=== PATIENT | female | born 1990 | race Caucasian/White ===

== ENCOUNTER 2023-02-05 01:04 | Day surgery (SDC) | payer OTHER, SELFPAY ==
[2023-01-30 14:48] VITALS: BMI 20.6
--- NOTE | 2023-01-30 14:53 | PC.NURSE ---
Report to the Outpatient Waiting Room, entrance under the green pavilion located off [facility], at time 0600 on date 02/05/23. Planned Procedure Time: 0730. Time changes happen often and if your time is changed the preop area will call you the afternoon before. - You and your visitor will be asked to self-screen and do not enter if you have any COVID symptoms. - A mask is optional within the hospital at this time. Patients may have clear liquids (water, carbonated beverages, clear teas, apple juice) until 3 hours prior to surgery with a maximum of 20 ounces. - No food from midnight until time of surgery Take the following medications with a SIP of water the morning of surgery: NONE DO NOT STOP ANY OF YOUR OTHER PRESCRIPTION MEDICATIONS PRIOR TO SURGERY EXCEPT THE FOLLOWING Medications to discontinue per physician: VITAMINS Date to take last dose: 02/01/23 Please no make-up, nail finnish, hairspray, perfume, deodorant, or body powder the day of surgery. No jewelry (including any body piercings) or valuables the day of surgery, leave them at home. Please take a shower or bath the night before, or the morning of, surgery with an antibacterial soap. Wear comfortable, loose fitting clothing. - Jewelry must be removed prior to entering the operating room. Rings and piercings that are not removed may be cut off. - The hospital will not accept responsibility for valuables. - Please leave all valuables, including medications, at home the day of surgery. If you are going home after surgery, a licensed feeder driver must drive you home. - NO public transportation without another adult if you receive anesthesia. - We recommend that an adult stay with you for 24 hours following discharge. - We also recommend that you do not drive, make important decision, drink alcoholic beverages, or take any drugs that were not prescribed by your health care provider for at least 24 hours after your discharge time. Follow any additional instructions given to you from your surgeon. If you or anyone in your household have experienced Covid symptoms in the past week, please notify your surgeon or the nurse liaison at the phone number below for possible testing. Telephone instructions given to PT - DESIREE TURCIOS and asked if any additional questions and then verbalized understanding. Patient advised to call surgeon office or pre surgery nurse liaison [phone] if any additional questions.
--- NOTE | 2023-02-04 13:35 | WPDANESEPPF ---
Anes - Initial Pre Proc Eval Procedure: Operation Date: 02/05/23 07:30 Proposed Procedures p Belt Lipectomy without Muscle Repair - Mp Brennan MD Date/Time: 02/04/23 13:35 Surgeon: Mp Brennan MD Pre Op Diagnosis: skin laxity Patient Data Age: 32 Gender: F Height: 1.63 m Weight: 54.45 kg Allergies Allergy/AdvReac Type Severity Reaction Status Date / Time No Known Allergies Allergy Verified 02/05/23 06:20 Home Medications Medication Instructions Recorded Confirmed Type norethindrone 1 mg-ethinyl 1 tablet PO DAILY 10/31/20 01/30/23 History estradiol 10 mcg (24)-iron 10 mcg(2) tablet (Lo Loestrin Fe) multivitamin 1 tablet PO DAILY 01/30/23 01/30/23 History Patient hx anesthesia problems: none Family hx anesthesia problems: none Results Review: All pre-operative results and documents have been reviewed as part of the pre-operative evaluation. [facility] Surgical History Surgical History (Updated 10/31/20 @ 10:24 by Lissy Ortiz) History of Social History Social History (Updated 10/31/20 @ 10:25 by Lissy Ortiz) Smoking packs per day: 0.5 Smoking cigarettes per day: 10.0 Years smoked: 5 Smoking pack-years: 2.50 Smoking status: Former smoker Tobacco type: cigarettes Smoking end date: 11/13/15 Alcohol intake: current Alcohol use details: RARE Substance use: never Substance use type: does not use Living arrangements: with family Spiritual care concerns: No Anes - Eval Final PreProcedure Day of Procedure 02/04/23 13:35 Patient weight: normal Heart: regular rate and rhythm Lungs: clear to auscultation and normal air movement Airway: Mallampati scale class II Neurological: alert and oriented Last oral intake: >/= 8 hours ASA classification: II Emergent: no Anesthetic plan: proceed Anesthesia type and monitoring: general ETT and standard monitoring Results Review: All pre-operative results and documents have been reviewed as part of the pre-operative evaluation. Informed Consent: The patient's anesthetic plan and its attendant risks and benefits were discussed with the patient/family/POA. Questions were solicited and answers provided to the satisfaction of the patient/family/POA.
[2023-02-05] VITALS (10 sets, daily range): BP systolic 102–130; BP diastolic 61–84; PULSE 52–83; RESP 12–16; TEMP 36.8–36.9; O2SAT 98–100
[2023-02-05] MEDS: LACTATED RINGERS 1,000 ML 30 ML IV CONT ×2 (06:30→11:42)
[2023-02-05 06:34] LABS: Urine Cotinine NEGATIVE
[2023-02-05] MEDS: SCOPOLAMINE 1.5 MG PATCH TRANSDERM (06:58)
--- NOTE | 2023-02-05 07:14 | WPDHPUPDATE1 ---
History and Physical Update Update Date/Time: 02/05/23 07:14 History and Physical has been reviewed, including an updated exam of the patient. There are NO changes in the patient's condition. Risks, benefits, and alternatives have been discussed and questions answered. Patient agrees to proceed with procedure.
--- NOTE | 2023-02-05 07:15 | W.PM.PROC2 ---
Procedure Note - Detailed Date of Procedure 02/05/23 Pre-op Diagnosis skin laxity Post-op Diagnosis Same Procedure Performed Belt lipectomy (no muscle repair) Surgeon Mp Brennan MD Anesthesia General Findings Tissue removed: 1256.2 grams Description of Procedure They are here today for the above. Previously and again today the risks, benefits, alternatives were discussed in extensive detail. I wanted them to be very realistic about the risks involved as well as expectations. She declines muscle repair and understands the advantages / disadvantages of this. We discussed aftercare and what to monitor for. I was very upfront about the risks of wound breakdown leading to loss of skin, open wounds, and need for additional procedures with permanent abdominal deformity. We discussed DVT/PE risks and management. Made sure answered all of their questions to their satisfaction today and consent was obtained. They were marked in the preoperative holding area with their verification. Taken to the operating room. Anesthesia was provided by anesthesiology. A Weeks catheter was started. The patient was placed prone on the operating table. They were prepped and draped in a standard sterile fashion. A surgical time-out was taken. Posterior A thorough examination was completed. Stab incisions were made and tumescent solution infiltrated. Discontinuous undermining was completed with a 5mm basket cannula. A 10 blade was used to make the upper incision and elevated just the planned resection (no undermining). The bed was placed in slight jackknife position to simiulate abdominoplasty and resection completed. I then approximated using a 3 point suture obliterating all space with 2-0 Vicryl followed by 3-0 stratafix ,running subcuticular 4-0 Monocryl, and tissue glue. Anterior Patient was then placed supine with care taken to protect during transfer. I placed the patient in a flexed position to verify the upper and lower markings would reach. I then placed supine. A thorough abdominal examination was completed. Stab incisions were made and tumescent solution infiltrated. A 5mm liposuction basket cannula was utilized to provide discontinuous undermining. A 10 blade was used to make the upper incision. I continued dissection down to the level of fascia. Elevated centrally for securing the abdomen, minimal undermining. I then again flexed the bed to verify the upper skin flap would reach the lower markings without tension. For closure we did have to leave a vertical scar on upper flap. Once verified I placed her supine once again and a 10 blade used to make the lower incision. I elevated up to level the umbilicus and left the umbilicus intact on a well-vascularized stalk. The intervening tissue was removed. The patient was flexed and starting from superior to inferior began plication using 2-0 Vicryl to obliterate all space in a standard progressive tension fashion. At the umbilicus I marked out the location of the skin and inset this with 3-0 Monocryl and 4-0 Vicryl. I continued the remainder of the plication using 2-0 Vicryl until I reached my lower planned scar line. I trimmed any excess skin of the upper flap making sure this was a tension-free closure. I then approximated using a 3 point suture with 2-0 Vicryl followed by 3-0 stratafix ,running subcuticular 4-0 Monocryl, and tissue glue. Fluffs and an abdominal binder were placed. The patient was transferred to the bed in a flexed position. Awoken and taken to the PACU without difficulty. All instrument and sponge counts were correct at the end of the case. Estimated Blood Loss 100 Drains No Packing No Pathology None sent Complications No immediate complications Condition Stable Disposition PACU
[2023-02-05] MEDS: ceFAZolin 2 GM/D5W 50 ML 2 GM/50 ML BAG IVPB (07:33)
[2023-02-05] MEDS: TRANEXAMIC ACID 1,000MG/ISO100 1,000 MG/100 ML BAG 200 MG IVPB (07:47)
--- NOTE | 2023-02-05 09:56 | SUR.OPER ---
upper body and lower body warmer on for prone and supine positioning/warmers over thigh belt.
[2023-02-05] MEDS: LACTATED RINGERS IRRIG 1,000 ML, LIDOCAINE HCL 1% LOCAL INJ 50 ML, EPINEPHrine HCL INJ ... INFILTRATE (10:56)
[2023-02-05] MEDS: ceFAZolin SODIUM 1 GM VIAL IV PUSH (11:19)
--- NOTE | 2023-02-05 11:44 | SUR.OPER ---
patient to PACU on stretcher with positioning = to surgery position/head elevation and 3 pillow under knees lower leg. LENS ENGRAVER informed of maintaining position.
[2023-02-05] MEDS: fentaNYL CITRATE INJ (*CRX) 100 MCG/2 ML VIAL 25 MCG IV PUSH ×8 (11:53→13:32)
[2023-02-05] MEDS: oxyCODONE HCL (*CRX) 5 MG TAB IR PO (12:55)
== END 2023-02-05 14:24 | disposition home or self-care (01) ==
PROVIDERS: Visit Provider Surgery Plastic and Reconstructive Surgery
PROC: (CPT 15830; principal; 2023-02-05 07:30)
DX: Z41.1 Encounter for cosmetic surgery (principal); L57.4 Cutis laxa senilis; Z87.891 Personal history of nicotine dependence
CPT/HCPCS: 15830; 15847; 80307; A9270; J0171; J0690; J1100; J1170; J2250; J2405; J2704; J3010; J7120

== ENCOUNTER 2024-04-22 00:23 | Day surgery (SDC) | payer OTHER, SELFPAY ==
[2024-04-19 11:06] VITALS: BMI 20.8
--- NOTE | 2024-04-19 11:14 | PC.NURSE ---
Report to the Outpatient Waiting Room, entrance under the green pavilion located off [facility], at time _1000_ on date _04/22/24_. Planned Procedure Time: _1200_. Time changes happen often and if your time is changed the preop area will call you the afternoon before. - You and your visitor will be asked to self-screen and do not enter if you have any COVID symptoms. - A mask is optional within the hospital at this time. Patients may have clear liquids (water, carbonated beverages, clear teas, apple juice) until 3 hours prior to surgery with a maximum of 20 ounces. - No food from midnight until time of surgery - Infants may have breast milk until 4 hours before surgery, infant formula 6 hours prior to surgery. - Children will be allowed to drink immediately following surgery. If applicable, please bring a bottle or sippy cup to assist with drinking. Juice, water, soda, and popsicles are readily available. For infants on formula, please bring formula the day of surgery. Pacifiers are allowed. Take the following medications with a SIP of water the morning of surgery: ____BUPROPION, BCP DO NOT STOP ANY OF YOUR OTHER PRESCRIPTION MEDICATIONS PRIOR TO SURGERY ?EXCEPT THE FOLLOWING Medications to discontinue per physician MULTIVITAMIN Date to take last dose Please no make-up, nail slovak, hairspray, perfume, deodorant, or body powder the day of surgery. No jewelry (including any body piercings) or valuables the day of surgery, leave them at home. Please take a shower or bath the night before, or the morning of, surgery with an antibacterial soap. Wear comfortable, loose fitting clothing. Children are encouraged to wear pajamas. - Jewelry must be removed prior to entering the operating room. Rings and piercings that are not removed may be cut off. - The hospital will not accept responsibility for valuables. - Please leave all valuables, including medications, at home the day of surgery. If you are going home after surgery, a licensed route driver salesperson must drive you home. - NO public transportation without another adult if you receive anesthesia. - We recommend that an adult stay with you for 24 hours following discharge. - We also recommend that you do not drive, make important decision, drink alcoholic beverages, or take any drugs that were not prescribed by your health care provider for at least 24 hours after your discharge time. For Pediatric surgeries, we recommend two adults accompany the child home. Follow any additional instructions given to you from your surgeon. If you or anyone in your household have experienced Covid symptoms in the past week, please notify your surgeon or the nurse liaison at the phone number below for possible testing. Telephone instructions given to and asked if any additional questions and then verbalized understanding. Patient advised to call surgeon office or pre surgery nurse liaison [phone] if any additional questions.
[2024-04-22] VITALS (7 sets, daily range): BP systolic 100–114; BP diastolic 55–81; PULSE 53–75; RESP 14–23; TEMP 36.1–36.5; O2SAT 99–100
[2024-04-22] MEDS: LACTATED RINGERS 1,000 ML 30 ML IV CONT ×2 (10:30→12:56)
[2024-04-22] MEDS: KETOROLAC 15 MG/ML VIAL (*BKC) IV PUSH (10:30)
[2024-04-22] MEDS: ACETAMINOPHEN 500 MG TABLET 1000 MG PO (10:30)
[2024-04-22 10:43] LABS: BEDSIDEPREGUCG Negative
[2024-04-22] MEDS: BUPIVACAINE/EPINEPHRINE 0.5% 50 ML VIAL 30 ML INFILTRATE (10:44)
--- NOTE | 2024-04-22 11:23 | WPDANESEPPF ---
Anes - Initial Pre Proc Eval Procedure: Operation Date: 04/22/24 12:00 Proposed Procedures p Open Ventral Hernia Repair, Possible Mesh - Malcolm Spangler DO Date/Time: 04/22/24 11:23 Surgeon: Malcolm Spangler DO Pre Op Diagnosis: ventral hernia 1.cm Patient Data Age: 33 Gender: F Height: 1.63 m Weight: 54.4 kg Last Vital Signs Temp 36.5 C 04/22/24 10:30 Pulse 75 04/22/24 10:30 Resp 14 04/22/24 10:30 BP 110/81 04/22/24 10:30 Pulse Ox 100 04/22/24 10:30 O2 Del Method Room Air 04/22/24 10:30 Allergies Allergy/AdvReac Type Severity Reaction Status Date / Time No Known Allergies Allergy Verified 04/22/24 10:39 Home Medications Medication Instructions Recorded Confirmed Type norethindrone 1 mg-ethinyl 1 tablet PO DAILY 10/31/20 04/22/24 History estradiol 10 mcg (24)-iron 10 mcg(2) tablet (Lo Loestrin Fe) multivitamin 1 tablet PO DAILY 01/30/23 04/19/24 History bupropion HCl 300 mg 24 hr tablet, 300 mg PO QAM 03/21/24 04/19/24 History extended release (Wellbutrin XL) lamotrigine 100 mg tablet 100 mg PO HS 03/21/24 04/19/24 History (Lamictal) Laboratory Tests 04/22/24 10:41 POC Urine HCG, Qual Negative POC Ur Preg QC Yes Patient hx anesthesia problems: none Family hx anesthesia problems: none Results Review: All pre-operative results and documents have been reviewed as part of the pre-operative evaluation. [facility] Surgical History Surgical History History of abdominoplasty History of Social History Social History Smoking packs per day: 0.5 Smoking cigarettes per day: 10.0 Years smoked: 2 Smoking pack-years: 1.00 Smoking status: Former smoker Tobacco type: cigarettes Smoking end date: 11/13/15 Additional smoking assessment comments: 2016 Alcohol intake: current Alcohol use details: 1 PER MONTH Substance use: never Substance use type: does not use Do You Feel Safe in your Home?: Yes Lack of Transportation: No Lack of Food: Never True Current Housing: I Have Housing Concerned About Future Housing: No Difficulty Paying Gas/Electric Bills: No Difficulty Paying for Meds: No Currently Unemployed: No Education: Trade/Vocational Certificate Difficulty w/ Childcare or Family Care: No Living arrangements: with family Spiritual care concerns: No Anes - Eval Final PreProcedure Day of Procedure 04/22/24 11:23 Patient weight: normal Heart: regular rate and rhythm Lungs: clear to auscultation Airway: Mallampati scale class II Neurological: alert and oriented Last oral intake: >/= 8 hours Emergent: no Anesthetic plan: proceed Anesthesia type and monitoring: general ETT and standard monitoring Results Review: All pre-operative results and documents have been reviewed as part of the pre-operative evaluation. Informed Consent: The patient's anesthetic plan and its attendant risks and benefits were discussed with the patient/family/POA. Questions were solicited and answers provided to the satisfaction of the patient/family/POA.
--- NOTE | 2024-04-22 12:15 | PM.IMHP ---
H&P: HPI History of Present Illness Date/Time: 04/22/24 12:15 Chief Complaint: Ventral hernia Narrative: 33 yo woman presents for ventral hernia repair. She reports no changes since last seen in office. Review of Systems Review of Systems: All systems reviewed & are unremarkable except as noted in HPI and below Eyes: Eyes: Denies change in vision ENT: Denies hearing loss, Denies neck pain and Denies sore throat Cardiovascular: Cardiovascular: Denies chest pain and Denies dyspnea Respiratory: Respiratory: Denies cough, Denies dyspnea and Denies wheezing Genitourinary: Genitourinary: Denies hematuria and Denies dysuria Musculoskeletal: Musculoskeletal: Denies arthralgias, Denies joint swelling and Denies neck pain Allergic/Immunologic: Allergic/Immunologic: Denies wheezing PMFSH Surgical History Surgical History History of abdominoplasty History of Social History Social History Smoking packs per day: 0.5 Smoking cigarettes per day: 10.0 Years smoked: 2 Smoking pack-years: 1.00 Smoking status: Former smoker Tobacco type: cigarettes Smoking end date: 11/13/15 Additional smoking assessment comments: 2016 Alcohol intake: current Alcohol use details: 1 PER MONTH Substance use: never Substance use type: does not use Do You Feel Safe in your Home?: Yes Lack of Transportation: No Lack of Food: Never True Current Housing: I Have Housing Concerned About Future Housing: No Difficulty Paying Gas/Electric Bills: No Difficulty Paying for Meds: No Currently Unemployed: No Education: Trade/Vocational Certificate Difficulty w/ Childcare or Family Care: No Living arrangements: with family Spiritual care concerns: No Meds Home Medications and Allergies Home Medications Medication Instructions Recorded Confirmed Type norethindrone 1 mg-ethinyl 1 tablet PO DAILY 10/31/20 04/22/24 History estradiol 10 mcg (24)-iron 10 mcg(2) tablet (Lo Loestrin Fe) multivitamin 1 tablet PO DAILY 01/30/23 04/19/24 History bupropion HCl 300 mg 24 hr tablet, 300 mg PO QAM 03/21/24 04/19/24 History extended release (Wellbutrin XL) lamotrigine 100 mg tablet 100 mg PO HS 03/21/24 04/19/24 History (Lamictal) Allergies Allergy/AdvReac Type Severity Reaction Status Date / Time No Known Allergies Allergy Verified 04/22/24 10:39 Vital Signs Vital Signs - 24 hr 04/22/24 10:30 Temperature 36.5 C Pulse Rate 75 Respiratory Rate 14 Blood Pressure 110/81 Pulse Oximetry 100 Oxygen Delivery Room Air Exam Const: General: alert; No acute distress Orientation/consciousness: patient oriented x3 Limitations: no limitations HENMT: Head: normocephalic and atraumatic Ears: hearing grossly normal bilaterally Face/Nose/Sinus: Normal external nose present and Normal nares present Mouth: Yes Normal oral and palatal mucosa present and Yes moist mucous membranes Eyes: General: appearance normal, both eyes and all related structures Conjunctivae: conjunctivae normal Sclera: sclerae normal Pupils: Equal, round and reactive pupils present EOM: EOMs intact bilaterally Neck: Neck: normal visual inspection, full ROM, no lymphadenopathy, supple and no JVD Lymphatic: no lymphadenopathy noted Chest: Chest palpation & inspection: normal inspection of the chest Resp: Effort & Inspection: normal respiratory effort and able to speak in complete sentences Auscultation: clear to auscultation bilaterally Percussion: percussion normal Cardio: Jugular venous distension: no JVD Rate: regular rate Rhythm: regular rhythm Heart sounds: S1 normal heart sound present and S2 normal heart sound present Peripheral pulses: Peripheral pulses 2+ throughout GI: Inspection: normal to inspection GI Palp: No abdominal tenderness, Yes Soft to palpation, No Guarding due to pa
--- NOTE | 2024-04-22 12:20 | WPDHPUPDATE1 ---
History and Physical Update Update Date/Time: 04/22/24 12:20 History and Physical has been reviewed, including an updated exam of the patient. There are NO changes in the patient's condition. Risks, benefits, and alternatives have been discussed and questions answered. Patient agrees to proceed with procedure.
[2024-04-22] MEDS: ceFAZolin 2 GM/D5W 50 ML 2 GM/50 ML BAG IVPB (12:22)
[2024-04-22 12:41] LABS: BEDSIDEPREGUCG Negative
--- NOTE | 2024-04-22 12:49 | W.PM.PROC2 ---
Procedure Note - Detailed Date of Procedure 04/22/24 Pre-op Diagnosis ventral hernia Post-op Diagnosis Same (0.5 cm ventral hernia) Procedure Performed Open 0.5 cm ventral hernia repair Surgeon Malcolm Spangler DO Anesthesia General and Local (0.5% bupivacaine with epinephrine) Indications This is a 33-year-old woman who presented with a painful bulge in her upper abdomen. She noticed this several months ago and it has increased in discomfort. This is somewhat limiting her exercise and physical activity. She was found to have a small ventral hernia located about 4 cm cephalad to her umbilicus. Discussions were made with the patient about treatment options and decision was made to proceed with open ventral hernia repair with possible mesh. Findings Open ventral hernia repair was performed. Patient had a 0.5 cm ventral hernia located about 4 cm cephalad to the umbilicus. The hernia was containing some preperitoneal fat but appeared very small. The preperitoneal fat was excised and discarded. Decision was made to repair the hernia primarily using 0 Ethibond [id number] sutures. No other abnormalities were noted. Description of Procedure Procedure as well as risks, benefits, and alternatives were discussed with the patient. Written consent was obtained and placed in chart prior to procedure. Patient was brought back to surgical suite. She was placed supine on operating table. Time-out was done to confirm patient and procedure. She was then intubated by the anesthesia department. Her abdomen was prepped and draped in sterile fashion using chlorhexidine prep. The area around the hernia was anesthetized with 0.5% bupivacaine with epinephrine. A 3 cm transverse incision was made directly over the the palpable ventral hernia using a 15 blade scalpel. Electrocautery was used for hemostasis and for careful dissection through the subcutaneous tissue. The hernia sac was encountered and carefully dissected free circumferentially down to the level of the fascia using electrocautery. The hernia sac and preperitoneal fat was then excised using electrocautery. The fascial edges were then inspected and the hernia defect was measured. Hernia defect measured 0.5 cm. Decision was made to repair this primarily. 0 Ethibond [id number] sutures were placed in the fascia transversely to approximate the fascia. A total of 2 sutures were placed and the fascia came together well without any tension. Once the sutures were tied down in place I then inspected the repair and it appeared secure. No other abnormalities were noted. 0.5% bupivacaine with epinephrine was infiltrated locally around the fascia. Hemostasis appeared adequate. Marcio's fascia was reapproximated using 3-0 Vicryl simple interrupted sutures. The skin was approximated using 4-0 Monocryl running subcuticular suture. Exofin glue was then applied on top. The patient was then awakened from anesthesia, extubated, and transferred to recovery. Estimated Blood Loss 2 Pathology None sent Complications No immediate complications Condition Stable Disposition Same day [facility] Billing Surgery - Charge Forward: Surgery Billing
== END 2024-04-22 14:30 | disposition home or self-care (01) ==
PROVIDERS: Referring Provider Surgery Plastic and Reconstructive Surgery; Visit Provider Surgery
PROC: 0WQF0ZZ Repair Abdominal Wall, Open Approach (ICD-10-PCS; CPT 49591; principal; 2024-04-22 12:00)
DX: K43.9 Ventral hernia without obstruction or gangrene (principal); Z87.891 Personal history of nicotine dependence
CPT/HCPCS: 49591; A9270; J0690; J1100; J1885; J2250; J2405; J2704; J3010; J7120